=== PATIENT | female | born 1955 | race Caucasian/White ===

== ENCOUNTER 2018-09-08 20:35 | Inpatient (IN) | payer MEDICAID ==
[~2018-09-08] VITALS: Ht 152.4 cm; Wt 52.9 kg
[2018-09-08 20:47] VITALS: Ht 152.4 cm; Wt 52.9 kg
--- NOTE | 2018-09-08 20:50 | NUR ---
BLOOD GLUCOSE TAKEN IN TRIAGE
--- NOTE | 2018-09-08 22:27 | NUR ---
PATIENT AAOX4 PRESENTED TO THE ED WITH C/O FALL. PATIENTS DAUGHTER STATES THAT THEY ARE IN THE PROCESS OF MOVING AND PATIENT ADMITS TO NOT TAKING HER INSULIN FOR SEVERAL DAYS. PATIENTS FALL WAS ABOUT 11AM THIS MORNING AND DENIES HITTING HEAD OR LOC. PATIENT DENIES N/V- BREATHING EVEN AND UNLABORED. NO OTHER S/S OF DISTRESS NOTED. PATIENT PLACED ON ALL MONITORS FOR FURTHER EVALUATION. WILL CONTINUE TO MONITOR.
--- NOTE | 2018-09-08 22:29 | NUR ---
DR DUTTA BEDSIDE PROVIDING EVALUATION.
[2018-09-08 22:57] LABS: BASOPHIL % 0.2 % (0-2); PLATELET COUNT 163 x10^3mcL (130-400)
--- NOTE | 2018-09-08 23:33 | NUR ---
PLACED IV AND STARTED NS BOLUS PER MD ORDERS. PATIENT BREATHING EVEN AND UNLABORED. NO S/S OF DISTRESS NOTED. WILL CONTINUE TO MONITOR.
[2018-09-08 23:43] LABS: CALCIUM 9.1 mg/dL (8.5-10.1); CARBON DIOXIDE 20.1 mmol/L (21-32); CREATININE SERUM 2.1 mg/dL (0.6-1.0); POTASSIUM SERUM 4.3 mmol/L (3.5-5.1)
[2018-09-08 23:46] LABS: ALBUMIN 3.8 g/dL (3.4-5.0); BILIRUBIN TOTAL 0.45 mg/dL (0.20-1.00)
[2018-09-09 00:06] LABS: UA SPECIFIC GRAVITY 1.025 (1.005-1.035); microscopic required? YES; urine erythrocyte TRACE (NEGATIVE)
--- NOTE | 2018-09-09 00:43 | NUR ---
STARTED PATIENT ON IV ANTIBIOTIC THERAPY PER MD ORDERS. PATIENT RESTING ON GURNEY- NO S/S OF DISTRESS NOTED. BREATHING EVEN AND UNLABORED.
[2018-09-09] MEDS ORDERED: ATORVASTATIN CA80 M1 PO (01:53)
[2018-09-09] MEDS ORDERED: ATENOLOL25 MG PO (01:54)
[2018-09-09] MEDS ORDERED: ASPIR 8181 MG PO (01:56)
--- NOTE | 2018-09-09 02:06 | NUR ---
PROVIDED REPORT TO RUBY BACON FOR FURTHER CARE OF PATIENT.
[2018-09-09] MEDS ORDERED: BASAGLAR K100 UNIT/1 SC (02:09)
[2018-09-09 02:41] LABS: MAGNESIUM 2.1 mg/dL (1.8-2.4); PHOSPHOROUS 3.7 mg/dL (2.5-4.9)
[2018-09-09 02:42] LABS: CHOLESTEROL/HDL RATIO 4.7
[2018-09-09 02:44] VITALS: BP 121/61
[2018-09-09 02:44] LABS: T3 TOTAL 0.86 ng/mL
[2018-09-09 02:49] LABS: FREE T4 1.55 ng/dL (0.76-1.46); FREE THYROXINE INDEX 3.8 ug/dL (1.4-4.5); T4(THYROXINE) 10.4 ug/dL (4.7-13.3)
--- NOTE | 2018-09-09 03:18 | NUR ---
RECEIVED PT FROM ED, NO ACUTE DISTRESS. FAMILY AT BEDSIDE. ORIENTED PT TO ROOM. BED IN LOWEST POSITION, SIDE RAILS UP X2, CALL LIGHT WITHIN REACH. WILL CONTINUE TO MONITOR.
[2018-09-09 05:22] VITALS: BP 107/50; BP 184/86
[2018-09-09 06:17] LABS: BASOPHIL % 0.4 % (0-2); PLATELET COUNT 153 x10^3mcL (130-400); RED CELL DISTRIBUTION WIDTH 14.1 % (11.5-14.5)
--- NOTE | 2018-09-09 06:24 | NUR ---
PT SLEPT PERIODICALLY THROUGHOUT NIGHT, NO ACUTE DISTRESS. ALL NEEDS MET AND ATTENDED TO. NO SIGNIFICANT CHANGES. IV PATENT AND INTACT. BED IN LOWEST POSITION, SIDE RAILS UP X2, CALL LIGHT WITHIN REACH. WILL ENDORSE CARE TO ONCOMING NURSE.
[2018-09-09 06:55] LABS: CALCIUM 8.7 mg/dL (8.5-10.1); CARBON DIOXIDE 19.8 mmol/L (21-32); CREATININE SERUM 1.4 mg/dL (0.6-1.0); POTASSIUM SERUM 3.7 mmol/L (3.5-5.1)
--- NOTE | 2018-09-09 07:10 | NUR ---
SEEN RESTING IN BED AAOX5. NO RESP DISTRESS NOTED ON ROOM AIR. DENIES DIZZINESS OR HEADACHE AT THIS TIME. TELE#27 NSR. DAUGHTER AT BEDSIDE INTERPRETED. ON CCHO DIET. BRP WITH MINIMAL ASSISTANCE. IVF NS TO RAC INFUSING WELL AT 70ML/HR. ON ROCEPHIN IV Q 24 HRS. PLAN OF CARE DISCUSSED, CALL LIGHT PLACED WITHIN EASY REACH. SIDERAILS UP X2.
[2018-09-09 08:18] VITALS: BP 104/56
[2018-09-09 12:21] VITALS: BP 137/75
[2018-09-09 16:36] VITALS: BP 134/76
--- NOTE | 2018-09-09 18:05 | NUR ---
DENIES PAIN OR DIZZINESS, AMBULATORY TO BATHROOM WITH STEADY GAIT. ALL SCHEDULED MEDS GIVEN. IVF NS INFUSING WELL TO [facility] IV SITE.
--- NOTE | 2018-09-09 19:49 | NUR ---
PT CURRENTLY RESTING IN BED, NO ACUTE DISTRESS. A/O X4. TELE #27 SHOWING SINUS RHYTHM, DENIES CHEST PAIN. PULSES PALPABLE IN ALL EXTREMITIES, NO EDEMA NOTED. LUNG SOUNDS CTA BILATERALLY, DENIES SOB. BOWEL SOUNDS ACTIVE, LAST BM 09/09/18. VOIDING WELL. MILD GENERALIZED WEAKNESS, AMBULATORY. LLE ABRASION NOTED, RODO. IV TO RAC FOUND LEAKING, NEW IV STARTED TO LFA. BED IN LOWEST POSITION, SIDE RAILS UP X2, CALL LIGHT WITHIN REACH. WILL CONTINUE TO MONITOR.
[2018-09-09 20:50] VITALS: BP 140/62
--- NOTE | 2018-09-10 00:40 | NUR ---
PT CURRENTLY RESTING IN BED, NO ACUTE DISTRESS. WILL CONTINUE TO MONITOR.
[2018-09-10 04:53] VITALS: BP 108/56
[2018-09-10 06:30] LABS: CALCIUM 8.7 mg/dL (8.5-10.1); CARBON DIOXIDE 20.2 mmol/L (21-32); POTASSIUM SERUM 4.3 mmol/L (3.5-5.1)
[2018-09-10 07:09] LABS: IRON 79 ug/dL (50-170); TOTAL IRON BINDING CAPACITY 249 ug/dL (250-450)
--- NOTE | 2018-09-10 07:10 | NUR ---
SEEN RESTING WITH EYES CLOSED, NO RESP DISTRESS NOTED ON ROOM AIR. TELE# 27 NSR. DENIES DIZZINESS OR PAIN AT THIS TIME. DAUGHTER AT BEDSIDE. VOIDS, BRP. IVF NS TO LFA INFUSING WELL AT 70ML/HR. PLAN OF CARE DISCUSSED. CALL LIGHT PLACED WITHIN EASY REACH. SIDERAILS UP X2.
[2018-09-10 07:46] LABS: BASOPHIL % 0.5 % (0-2); PLATELET COUNT 147 x10^3mcL (130-400); RED CELL DISTRIBUTION WIDTH 14.2 % (11.5-14.5)
[2018-09-10 09:41] VITALS: BP 136/79
--- NOTE | 2018-09-10 10:46 | NUR ---
DOCTOR VASQUEZ AND MEDICAL TEAM AT BEDSIDE FOR AM ROUND. PATIENT AND FAMILY MADE AWARE PLAN OF CARE.
[2018-09-10 13:06] VITALS: BP 138/79
--- NOTE | 2018-09-10 15:31 | NUR ---
RESUMED CARE OF THIS PT FROM WILLIAM-RN. PT IN NO DISTRESS, AWAKE, ALERT AND ORIENTED. FAMILY AT BEDSIDE. NO C/O PAIN OR DISCOMFORT. CALL LIGHT WITHIN REACH. WILL CONTINUE WITH PLAN OF CARE.
[2018-09-10 17:17] VITALS: BP 148/81
--- NOTE | 2018-09-10 18:11 | NUR ---
REMAINS IN NO DISTRESS, AWAKE AND ALERT. NO C/O PAIN OR DISCOMFORT AT THIS TIME. FAMILY AT BEDSIDE. CALL LIGHT WITHIN REACH. WILL BE ENDORSED TO INCOMING SHIFT.
[2018-09-10 19:57] VITALS: BP 152/82
--- NOTE | 2018-09-10 20:06 | NUR ---
PT CURRENTLY RESTING IN BED, NO ACUTE DISTRESS. A/O X4. TELE #27 SHOWING SINUS RHYTHM, DENIES CHEST PAIN. PULSES PALPABLE IN ALL EXTREMITIES, NO EDEMA NOTED. LUNG SOUNDS CTA BILATERALLY, DENIES SOB. BOWEL SOUNDS ACTIVE, LAST BM 09/09/18. VOIDING WELL. AMBULATORY. LLE ABRASION, [employer]IE[employer]. IV PATENT AND INTACT. BED IN LOWEST POSITION, SIDE RAILS UP X2, CALL LIGHT WITHIN REACH. WILL CONTINUE TO MONITOR.
--- NOTE | 2018-09-11 03:46 | NUR ---
PT CURRENTLY RESTING IN BED, NO ACUTE DISTRESS. WILL CONTINUE TO MONITOR.
[2018-09-11 04:40] VITALS: BP 125/82
[2018-09-11 06:37] LABS: BASOPHIL % 0.4 % (0-2); PLATELET COUNT 143 x10^3mcL (130-400); RED CELL DISTRIBUTION WIDTH 14.4 % (11.5-14.5)
[2018-09-11 06:41] LABS: CALCIUM 8.9 mg/dL (8.5-10.1); CARBON DIOXIDE 20.4 mmol/L (21-32); POTASSIUM SERUM 5.2 mmol/L (3.5-5.1)
[2018-09-11 06:47] LABS: MAGNESIUM 1.6 mg/dL (1.8-2.4); PHOSPHOROUS 3.9 mg/dL (2.5-4.9)
[2018-09-11 07:09] LABS: microalbumin:creatinine ratio < 15.7 (0.0-30.0)
[2018-09-11 09:03] VITALS: BP 122/74
--- NOTE | 2018-09-11 09:04 | NUR ---
AAO TIMES 4. TELE # 27 SR. LUNGS CTA. NO SOB. O2 SAT ON RA 97%. BS'S ACTIVE TIMES 4. XIONG STRONG. PERIPHERAL PULSES PALPABLE. NO EDEMA. LLE ANTERIOR SCHINN AREA WITH ABOUT A 1 CM ABRASION FROM FALL AT HOME, HEALING INTO A SCAB, NO SIGNS OF INFECTION. COOPERATIVE. FAMILY AT BEDSIDE, SUPPORTIVE.
--- NOTE | 2018-09-11 10:17 | NUR ---
DR HERRERA AWARE THAT PATIENT'S SERUM POTASSIUM IF 5.2, AND THAT I HELD THE PO POTASSIUM THIS AM. ALSO SHE IS AWARE THAT THE PATIENTS MAGNESIUM IS 1.6.
[2018-09-11 12:12] VITALS: BP 135/79
[2018-09-11] MEDS ORDERED: LEXAPRO10 MG PO (12:38)
[2018-09-11] MEDS ORDERED: HYDROCHLOROTHIA25 MG PO (13:32)
[2018-09-11] MEDS ORDERED: LISINOPRIL40 MG PO (13:32)
--- NOTE | 2018-09-11 15:24 | NUR ---
PATIENT WAS GIVEN DISCHARGE INSTRUCTIONS AND PRESCRIPTION. DC'D SL ANGIO INTACT. SHE STATED "I UNDERSTAND" TO ALL INSTRUCTIONS. FAMILY PRESENT, DTR ALSO VERBALIZED "I UNDERSTAND".
--- NOTE | 2018-09-11 17:01 | NUR ---
PHYSICAL THERAPY DAILY NOTES CO-SIGN All documentation done by the Loan Interviewer for 09/11/18 has been reviewed. I agree with the documentation. Reviewed/Co-Signed by: Patt Bloom PT Documentation Done by:MCKENZIE GUSMAN PTA
== END 2018-09-11 15:06 | disposition home or self-care (01) | DRG 463 ==
LOC: ED 20:35 → DU 09-09 01:34
PROVIDERS: Emergency Medicine; Internal Medicine Nephrology; ADMIT Internal Medicine
DX: N39.0 Urinary tract infection, site not specified (principal); N17.0 Acute kidney failure with tubular necrosis; E87.2 Acidosis; E86.0 Dehydration; E11.65 Type 2 diabetes mellitus with hyperglycemia; D64.9 Anemia, unspecified; E87.5 Hyperkalemia; E87.1 Hypo-osmolality and hyponatremia; E02 Subclinical iodine-deficiency hypothyroidism; R80.9 Proteinuria, unspecified; Z79.82 Long term (current) use of aspirin; Z79.4 Long term (current) use of insulin; Z68.23 Body mass index [BMI] 23.0-23.9, adult; Z79.84 Long term (current) use of oral hypoglycemic drugs
CPT/HCPCS: 82962; 84439; 97110-GP; 97116-GP; J0696; J1815; J7030; J7040